=== PATIENT | male | born 1990 | race Caucasian/White ===

== ENCOUNTER 2019-06-10 22:24 | Emergency (ER) | payer BC ==
[~2019-06-10] VITALS: Ht 167.6 cm; Wt 90.7 kg
[2019-06-10 22:30] VITALS: BP 134/89
--- NOTE | 2019-06-10 22:33 | NUR ---
TO LOBBY A/W BED AMBULATORY
--- NOTE | 2019-06-10 22:59 | NUR ---
PT AMBULATED TO BED
--- NOTE | 2019-06-10 23:00 | NUR ---
28/M PRESENTS TO ED, C/O BURNING SENSATION ON EPIGASTRIC, X2 DAYS, DENIES PAIN. REPORTS VOMITING X4, REPORTS BLOOD-TINGED EMESIS, DENIES NAUSEA AT THIS TIME. PT REPORTS FEVER AT HOME, AFEBRILE AT THIS TIME. DENIES COUGH. PT AWAKE AND ALERT, SKIN NORMAL COLOR WARM AND DRY, RR EVEN AND UNLABORED. LUNG SOUNDS CLEAR BL. BS ACTIVE X4, ABD SOFT FLAT NONTENDER. HX FELICITY MAIER TEARS, GERD, GASTRIC SLEEVE (2017)
[2019-06-10] MEDS ORDERED: ONDANSETRON 4 MG ODT PO ONE (23:30)
[2019-06-10] MEDS ORDERED: PANTOPRAZOLE 40 MG TABEC PO ONE (23:30)
--- NOTE | 2019-06-10 23:59 | NUR ---
PT GIVEN PROTONIX 40MG PO AND ZOFRAN ODT 4 MG. PT STATES HAS DECREASED FEELING OF NAUSEA AT THIS TIME. PT RESTING IN BED SITTING UPRIGHT AND LOOKING AT PHONE. PARTNER AT BEDSIDE.
--- NOTE | 2019-06-11 00:12 | NUR ---
DR. KAPOOR AT BEDSIDE.
[2019-06-11 00:20] VITALS: BP 128/92
--- NOTE | 2019-06-11 00:20 | NUR ---
Patient discharged with v/s stable. Written and verbal after care instructions given and explained. Patient alert, oriented and verbalized understanding of instructions. Ambulatory with steady gait. All questions addressed prior to discharge. ID band removed. Patient advised to follow up with PMD. Rx of PROTONIX, ZOFRAN given. Patient educated on indication of medication including possible reaction and side effects. Opportunity to ask questions provided and answered.
== END 2019-06-11 00:20 | disposition home or self-care (01) ==
LOC: MED 22:24
DX: K21.9 Gastro-esophageal reflux disease without esophagitis (principal); R11.10 Vomiting, unspecified; K22.6 Gastro-esophageal laceration-hemorrhage syndrome
CPT/HCPCS: 87804; 99283; Q0162

== ENCOUNTER 2023-07-15 23:42 | Emergency (ER) | payer BC, OTHER ==
[~2023-07-15] VITALS: Ht 167.6 cm; Wt 99.8 kg
[2023-07-15 23:56] VITALS: BP 134/98; PULSE 99; RESP 18; TEMP 97.5; O2SAT 99
[2023-07-16 00:10] VITALS: BP 134/98; PULSE 99; RESP 18; TEMP 97.5; O2SAT 99
== END 2023-07-16 00:10 ==
LOC: MED 23:42
DX: Z02.89 Encounter for other administrative examinations (principal); Z48.01 Encounter for change or removal of surgical wound dressing; K21.9 Gastro-esophageal reflux disease without esophagitis; Z90.49 Acquired absence of other specified parts of digestive tract
CPT/HCPCS: 99283